=== PATIENT | male | born 1985 | race Caucasian/White ===

== ENCOUNTER 2017-02-04 19:37 | Emergency (ER) ==
[2017-02-04] MEDS ORDERED: LIDOCAINE SYRINGE ONE (20:31)
[2017-02-04] MEDS ORDERED: XYLOCAINE-MPF 1% 5 ML ONE (20:31)
[2017-02-04] MEDS ORDERED: MARCAINE 0.5% PF ONE (20:32)
[2017-02-04] MEDS ORDERED: XYLOCAINE-MPF 1% INJ ONE (20:40)
[2017-02-04] MEDS ORDERED: MARCAINE 0.5% PF INJ ONE (20:40)
[2017-02-04] MEDS ORDERED: ZITHROMAX PO ONE (20:42)
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
[2017-02-04 21:35] VITALS: BP 120/61
== END 2017-02-04 21:43 | disposition home or self-care (01) ==
LOC: P.ED 19:37
DX: K04.7 Periapical abscess without sinus (principal); K02.9 Dental caries, unspecified; K08.89 Other specified disorders of teeth and supporting structures; G89.29 Other chronic pain; M54.9 Dorsalgia, unspecified; R56.9 Unspecified convulsions; F17.210 Nicotine dependence, cigarettes, uncomplicated; Z79.899 Other long term (current) drug therapy; Z71.6 Tobacco abuse counseling; Z87.442 Personal history of urinary calculi
CPT/HCPCS: S0020